=== PATIENT | male | born 1985 | race Caucasian/White ===

== ENCOUNTER 2016-06-24 20:25 | Emergency (ER) | payer OTHER ==
[~2016-06-24] VITALS: Ht 198.1 cm; Wt 136.1 kg
[2016-06-24 20:28] VITALS: BP 143/87
--- NOTE | 2016-06-24 21:10 | ED HAND/WRIST INJURY COMPLAINT ---
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 BLEEDING CONTROLLED WITH PREHOSPITAL DRESSING AT THIS TIME. UNKNOWN LAST TETANUS SHOT Triage Nurses Notes Reviewed? 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 TETANUS NOT UTD. NO TX THUS FAR. (SHELDON SUAREZ) Past History Travel History Traveled to [place] past 21 day No Medical History Any Pertinent Medical History? none Neurological: NONE EENT: NONE Cardiovascular: NONE Respiratory: NONE Gastrointestinal: NONE Hepatic: NONE Renal: NONE Musculoskeletal: NONE Psychiatric: NONE Endocrine: NONE Blood Disorders: NONE Cancer(s): NONE Surgical History Surgical History: none Psychosocial History What is your primary language Bulgarian Tobacco Use: Current Daily Use Daily Tobacco Use Amount/Type: => 5 Cigarettes daily ETOH Use: occasional use Illicit Drug Use: denies illicit drug use Family History Hx Contributory? No (SHELDON SUAREZ) Review of Systems Review of Systems Constitutional: Reports: see HPI. EENTM: Reports: no symptoms. Respiratory: Reports: no symptoms. Cardiovascular: Reports: no symptoms. GI: Reports: no symptoms. Genitourinary: Reports: no symptoms. Musculoskeletal: Reports: see HPI. Skin: Reports: no symptoms. Neurological/Psychological: Reports: no symptoms. Hematologic/Endocrine: Reports: no symptoms. Immunologic/Allergic: Reports: no symptoms. All Other Systems: Reviewed and Negative (SHELDON SUAREZ) Physical Exam Physical Exam General Appearance: well developed/nourished Head: atraumatic Eyes: Bilateral: normal appearance, PERRL, EOMI. Ears, Nose, Throat: normal pharynx, normal ENT inspection Neck: normal inspection, supple, full range of motion Cardiovascular/Respiratory: normal breath sounds, normal peripheral pulses, regular rate/rhythm, no respiratory distress Back: normal inspection Hand Left: normal inspection Hand Right: evidence of injury, 1st finger Neurologic/Tendon: normal sensation, normal motor functions, normal tendon functions Skin: intact, normal color, warm/dry Lymphatic: no anterior cervical penny Comments: Right hand, thumb with 1 x 1.5 cm superficial skin avulsion to the radial aspect distal thumb, does not involve the nail. Mild active bleeding from the pulp. Neurovascularly intact, full range of motion. (SHELDON SUAREZ) Progress Differential Diagnosis: cellulitis, fracture, FOREIGN BODY Plan of Care: Current Medications Sig/Rommel Start time Last Medication Dose Stop Time Status Admin Tetanus/Diphtheria 0.5 ML ONCE ONE 06/24 2114 UNVr Toxoids Adsorbed 06/24 2115 (Decavac) Comments: Wound was cleansed, topical lidocaine applied. Silver nitrate cautery was applied to the subcutaneous tissue to help stop the bleeding. Kaltostat was then applied and a gauze wrap dressing secured with tape. Patient tolerated well without complications. This is not a wound that could be Platt, as a true complete avulsion of the skin and this will take several weeks to heal which was discussed with patient. He UNDERSTANDS. tetanus vaccination given. (SHELDON SUAREZ) Departure Departure Disposition: HOME OR SELF CARE Condition: Stable Clinical Impression Primary Impression: Avulsion of skin of finger Qualifiers: Encounter type: initial encounter Qualified Code: S61.209A - Unspecified open wound of unspecified finger without damage to nail, initial encounter Referrals: WYATT VILLAFUERTE,OSWALD Ayala (PCP/Family) Additional Instructions: KEEP DRESSING ON FOR [address] WITH BAND-AID (WATERPROOF IF POSSIBLE) WATCH FOR SIGNS OF INFECTION (REDNESS, SWELLING, PAIN, DISCHARGE) WOUND MAY TAKE 2-3 WEEKS TO HEAL COMPLETELY. Departure Forms: Customer Survey General Discharge Information Prescriptions: Current Visit Scripts No Known Home Medications (SHELDON SUAREZ) PA/WEIR FISHERMAN Co-Sign Statement Statement: ED Attending supervision documentation- [] I saw and evaluated the patient. I have also reviewed all the pertinent lab results and diagnostic results. I agree with the findings and the plan of care as documented in the PA's/WEIR FISHERMAN's documentation. [X] I have reviewed the ED Record and agree with the PA's/WEIR FISHERMAN's documentation. [] Additions or exceptions (if any) to the PAs/WEIR FISHERMAN's note and plan are summarized below: [] (RUDY VILLAFUERTE,CORAZON Rosas)
== END 2016-06-24 21:17 ==
LOC: ERH 20:25
DX: S61.001A Unspecified open wound of right thumb without damage to nail, initial encounter (principal); W27.4XXA Contact with kitchen utensil, initial encounter
CPT/HCPCS: 90471; 90714